=== PATIENT | male | born 1945 | race Caucasian/White ===

== ENCOUNTER 2022-10-06 09:19 | Inpatient (IN) ==
--- NOTE | 2022-10-06 09:38 | Emergency Department Note ---
ED Provider Note History of Present Illness Chief Complaint: Illness Stated Complaint: Abdominal discomfort, weakness Time Seen by Provider: 10/06/22 09:37 This is a 77-year-old male who presents to the emergency department with symptoms that have been present over the past 3 days. He reports ongoing abdominal bloating and "discomfort "in his abdomen. He states that he can feel gas in his belly extending towards his rectum. He has been trying to stay hydrated. Today, after standing for several minutes, he felt very weak and his arms and legs feel heavy. This seems to come and go in waves. 2 nights ago he woke up in a cold sweat, and has had intermittent chills. Has not had any fevers that he is aware of. When he has the weakness sensation while standing, he states that he starts breathing faster, but he denies any shortness of breath that is constant, and does not have any chest pain. Has not wanted to eat very much today. Has not passed out. Denies any nausea, vomiting, or diarrhea. Is having normal stools. No significant cardiac or pulmonary history. Denies any leg pain or leg swelling. No dysuria or hematuria. Does have a history of prostate cancer and had a prostatectomy in the past. Lives in [place], is visiting for the holiday weekend. Appendectomy and hernia repair in the past Allergies Allergy/AdvReac Type Severity Reaction Status Date / Time Sulfa (Sulfonamide Allergy Rash Verified 10/06/22 13:35 Antibiotics) Past Med/Surg History Social History Smoking Status: Never smoker Feels Safe at Home: Yes Physical Exam Vital Signs Vital Signs - 24 hr 10/06/22 09:29 10/06/22 10:16 10/06/22 10:37 Temperature 97.3 F L Temperature Source Temporal Artery Scan Pulse Rate 104 H 146 H Pulse Rate [Right Finger] 172 H Respiratory Rate 16 12 Respiratory Effort / Characteristics Non-Labored Respiratory Depth Normal Blood Pressure 127/88 Blood Pressure [Right Arm] 129/85 Blood Pressure Mean 101 Blood Pressure Mean [Right Arm] 99 Pulse Oximetry 93 99 Oxygen Delivery Method Room Air Room Air Sepsis Recent Fever Within 48 Hours No Sepsis New/Unexplained Change in Mental Status No Sepsis Action Taken by Nursing No Action Required 10/06/22 10:37 10/06/22 11:00 10/06/22 11:32 Temperature Temperature Source Pulse Rate 170 H Pulse Rate [Right Finger] 88 102 H Respiratory Rate 18 16 Respiratory Effort / Characteristics Non-Labored Respiratory Depth Normal Blood Pressure Blood Pressure [Right Arm] 111/87 118/78 Blood Pressure Mean Blood Pressure Mean [Right Arm] 95 91 Pulse Oximetry 100 98 Oxygen Delivery Method Room Air Room Air Sepsis Recent Fever Within 48 Hours Sepsis New/Unexplained Change in Mental Status Sepsis Action Taken by Nursing 10/06/22 13:15 Temperature Temperature Source Pulse Rate Pulse Rate [Right Finger] 120 H Respiratory Rate 16 Respiratory Effort / Characteristics Respiratory Depth Blood Pressure Blood Pressure [Right Arm] Blood Pressure Mean Blood Pressure Mean [Right Arm] Pulse Oximetry 97 Oxygen Delivery Method Room Air Sepsis Recent Fever Within 48 Hours Sepsis New/Unexplained Change in Mental Status Sepsis Action Taken by Nursing CONSTITUTIONAL: Well developed, well nourished, in no acute distress resting comfortably on stretcher HEAD: Normocephalic, atraumatic. EYES: Conjunctivae normal, extraocular muscles intact. No scleral icterus ENMT: External ears normal. Nose with normal external appearance, no congestion. Oral mucous membranes moist. Oropharynx normal. NECK: Full active range of motion. LYMPHATIC: No cervical adenopathy RESPIRATORY: Breathing unlabored and symmetric. Lungs clear to auscultation bilaterally. No wheeze, rales, or rhonchi. CARDIOVASCULAR: Tachycardic rate and regular rhythm. No murmurs, rubs, or gallops. ABDOMEN: Normal bowel sounds. Abdomen is soft, diffusely tender. No masses. No pulsations. MUSCULOSKELETAL: Moves all extremities at all joints without pain or difficulty. No edema in bilateral lower extremities. SKIN: [place], warm, dry. No rash. No jaundice NEUROLOGIC: Awake, alert, oriented. Gaze is conjugate. Face symmetric, speech normal. Moves head and all four extremities spontaneously. Sensation and strength grossly intact. PSYCHIATRIC: Appropriate. Normal affect Course Administered Medications Discontinued Medications Diltiazem HCl (Diltiazem Hcl 5 Mg/Ml 5 Ml Vial) 15 mg IV NOW STA Stop: 10/06/22 10:35 Last Admin: 10/06/22 10:40 Dose: 15 mg Documented By: PARVIN Co-signed By: MES Sodium Chloride (Nss) 500 mls @ 999 mls/hr IV .Q31M ONE Stop: 10/06/22 10:23 Last Infusion: 10/06/22 11:11 Dose: 0 mls/hr Documented By: Admin: 10/06/22 10:10 Dose: 999 mls/hr Documented By: GISSELLE Ioversol (Optiray 320 500ml) 112 ml IV ONCE ONE Stop: 10/06/22 11:56 Last Admin: 10/06/22 11:58 Dose: 112 ml Documented By: NITO Medical Decision Making Differential Diagnosis Gastroenteritis, ileus, obstruction, ACS, arrhythmia, pulmonary embolism, vascular, viral infection, UTI, cholecystitis, cholelithiasis, diverticulitis, among other pathology. Laboratory Data 10/06/22 10:31 10/06/22 10:31 Lab Results 10/06/22 10/06/22 10/06/22 Range/Units 10:10 10:31 10:31 WBC 4.34 L (4.8-10.8) K/ul RBC 5.07 (4.70-6.10) M/uL Hgb 15.5 (14.0-18.0) g/dl Hct 43.9 (42.0-52.0) % MCV 86.6 (80.0-100.0) fL MCH 30.6 (25.0-34.0) pg MCHC 35.3 (32.0-36.0) g/dL RDW Std Deviation 39.9 (36.4-46.3) fL RDW Coeff of Kishore 12.9 (11.5-14.5) % Plt Count 241 (130-400) K/uL MPV 9.4 (9.4-12.4) fL Immature Gran % (Auto) 0.2 % Neut % (Auto) 51.0 % Lymph % (Auto) 35.7 % Dickinson % (Auto) 9.9 % Eos % (Auto) 2.5 % Baso % (Auto) 0.7 % Neut # (Auto) 2.21 (1.40-6.50) K/uL Lymph # (Auto) 1.55 (1.2-3.4) K/uL Dickinson # (Auto) 0.43 (0.11-0.59) K/uL Eos # (Auto) 0.11 (0-0.50) K/uL Baso # (Auto) 0.03 (0-0.2) K/uL Immature Gran # (Auto) 0.01 (0.01-0.20) K/uL PT (9.0-12.0) Seconds INR (0.9-1.1) APTT (21.0-31.0) Seconds PTT Ratio D-Dimer (0-500) ug/L FEU Sodium 142 (136-145) mmol/L Potassium 4.3 (3.5-5.1) mmol/L Chloride 106 (98-107) mmol/L Carbon Dioxide 28 (21-32) mmol/L Anion Gap 8 (3-11) BUN 20 (6-23) mg/dl Creatinine 1.27 (0.6-1.4) mg/dl Est Cr Clr Drug Dosing 54.3 ml/min Est GFR ( Amer) 63.2 ml/min Est GFR (Non-Af Amer) 54.5 ml/min BUN/Creatinine Ratio 15.7 (10-20) Glucose 110 H (70-99(Fasting)) mg/dl Calcium 9.8 (8.6-10.3) mg/dl Magnesium 2.1 (1.7-2.4) mg/dl Total Bilirubin 0.7 (0.2-1.0) mg/dl AST 27 (13-39) U/L ALT 22 (7-52) U/L Alkaline Phosphatase 74 (34-104) U/L Troponin I High Sens 15.3 (0-20) pg/ml Total Protein 6.6 (6.0-8.3) gm/dl Albumin 4.0 (3.4-5.0) gm/dl Globulin 2.6 (2.5-4.0) gm/dl Albumin/Globulin Ratio 1.5 (0.9-2) Lipase 22 (11-82) U/L TSH (0.300-4.500) uIu/ml Urine Color Urine Appearance (Clear) Urine pH (4.5-7.5) Ur Specific Lincoln (1.000-1.030) Urine Protein (Negative) Urine Glucose (UA) (Negative) Urine Ketones (Negative) Urine Blood (Negative) Urine Nitrite (Negative) Urine Bilirubin (Negative) Urine Urobilinogen (Negative) Ur Leukocyte Esterase (Negative) Urine RBC (0-4) /hpf Urine WBC (0-5) /hpf Ur Epithelial Cells (0-5) /lpf Urine Bacteria (Negative) Hyaline Casts (0-5) /lpf SARS-CoV-2 (PCR) NEGATIVE (Negative) Influenza Type A (PCR) Negative (Neg) Influenza Type B (PCR) Negative (Neg) RSV (RT-PCR) Negative (Neg) 10/06/22 10/06/22 10/06/22 Range/Units 10:31 10:31 11:48 WBC (4.8-10.8) K/ul RBC (4.70-6.10) M/uL Hgb (14.0-18.0) g/dl Hct (42.0-52.0) % MCV (80.0-100.0) fL MCH (25.0-34.0) pg MCHC (32.0-36.0) g/dL RDW Std Deviation (36.4-46.3) fL RDW Coeff of Kishore (11.5-14.5) % Plt Count (130-400) K/uL MPV (9.4-12.4) fL Immature Gran % (Auto) % Neut % (Auto) % Lymph % (Auto) % Dickinson % (Auto) % Eos % (Auto) % Baso % (Auto) % Neut # (Auto) (1.40-6.50) K/uL Lymph # (Auto) (1.2-3.4) K/uL Dickinson # (Auto) (0.11-0.59) K/uL Eos # (Auto) (0-0.50) K/uL Baso # (Auto) (0-0.2) K/uL Immature Gran # (Auto) (0.01-0.20) K/uL PT 10.4 (9.0-12.0) Seconds INR 1.0 (0.9-1.1) APTT 28.8 (21.0-31.0) Seconds PTT Ratio 1.0 D-Dimer 1030 H* (0-500) ug/L FEU Sodium (136-145) mmol/L Potassium (3.5-5.1) mmol/L Chloride (98-107) mmol/L Carbon Dioxide (21-32) mmol/L Anion Gap (3-11) BUN (6-23) mg/dl Creatinine (0.6-1.4) mg/dl Est Cr Clr Drug Dosing ml/min Est GFR ( Amer) ml/min Est GFR (Non-Af Amer) ml/min BUN/Creatinine Ratio (10-20) Glucose (70-99(Fasting)) mg/dl Calcium (8.6-10.3) mg/dl Magnesium (1.7-2.4) mg/dl Total Bilirubin (0.2-1.0) mg/dl AST (13-39) U/L ALT (7-52) U/L Alkaline Phosphatase (34-104) U/L Troponin I High Sens (0-20) pg/ml Total Protein (6.0-8.3) gm/dl Albumin (3.4-5.0) gm/dl Globulin (2.5-4.0) gm/dl Albumin/Globulin Ratio (0.9-2) Lipase (11-82) U/L TSH 1.146 (0.300-4.500) uIu/ml Urine Color Yellow Urine Appearance Clear (Clear) Urine pH 5.0 (4.5-7.5) Ur Specific [place] 1.020 (1.000-1.030) Urine Protein Trace H (Negative) Urine Glucose (UA) Negative (Negative) Urine Ketones 1+ H (Negative) Urine Blood Negative (Negative) Urine Nitrite Negative (Negative) Urine Bilirubin 1+ H (Negative) Urine Urobilinogen Negative (Negative) Ur Leukocyte Esterase Negative (Negative) Urine RBC 0-4 (0-4) /hpf Urine WBC 0-5 (0-5) /hpf Ur Epithelial Cells 0-5 (0-5) /lpf Urine Bacteria Negative (Negative) Hyaline Casts >30 H (0-5) /lpf SARS-CoV-2 (PCR) (Negative) Influenza Type A (PCR) (Neg) Influenza Type B (PCR) (Neg) RSV (RT-PCR) (Neg) Imaging Data Radiologist's Impression: Chest X-Ray 10/06/22 10:34 XR chest 1V portable CLINICAL HISTORY: Weakness COMPARISON STUDY: No previous studies for comparison. FINDINGS: Lung volumes are within normal limits. There is no pneumothorax or pleural effusion. Mild cardiomegaly is noted. Lower lung interstitial thickening and mild opacities are present. IMPRESSION: 1. Lower lung interstitial thickening and mild airspace opacities. The findings could reflect atelectasis or an infectious process. Radiographic follow-up is recommended. 2. Cardiomegaly without radiographic evidence for pulmonary edema. ACT 112: Negative or not required by law. Electronically signed by: Sanchez Raymundo M.D. 10/06/2022 11:23 AM Abdomen/Pelvis CT 10/06/22 11:31 CT OF THE ABDOMEN AND PELVIS WITH CONTRAST CLINICAL HISTORY: new onset afib, GI bloating and diffuse pain COMPARISON STUDY: None. TECHNIQUE: Following IV administration of 112 mL of Optiray, axial images of the abdomen and pelvis were obtained from the lung bases to the proximal femurs. Images were reviewed in the axial, sagittal, and coronal planes. IV contrast was administered without complication. Automated exposure control was utilized for the study. A dose lowering technique was utilized adhering to the principles of ALARA. CT DOSE: 1030.45 mGy.cm FINDINGS: A few small subpleural left lower lobe nodules measure up to 6 mm. These were not well visualized on the chest CT due to respiratory motion on that exam. No pneumatosis, free air or portal venous gas is present. The liver, spleen, adrenal glands, kidneys and pancreas are unremarkable with the exception of a suspected subcentimeter left renal cyst. There is no biliary or pancreatic ductal dilatation. Gallstones within the gallbladder are present. No evidence for acute cholecystitis. There is no lymphadenopathy. Sigmoid diverticulosis is noted. There is an inflamed diverticulum of the proximal sigmoid colon. There is mild inflammation. No free air or abscess is present. There is mild associated colonic wall thickening. Small fat-containing umbilical hernia is present. Major vasculature is patent. There are no suspicious osseous lesions. IMPRESSION: 1. Acute sigmoid diverticulitis. Mild inflammation. No free air or abscess. 2. A few small subpleural left lower lobe pulmonary nodules. These are probably benign. A follow-up chest CT in 6 months to ensure stability is recommended. 3. Cholelithiasis. No evidence for acute cholecystitis. ACT 112: Negative or not required by law. Electronically signed by: Sanchez Raymundo M.D. 10/06/2022 12:31 PM Chest CTA 10/06/22 11:31 CT ANGIOGRAPHY OF THE CHEST, PULMONARY EMBOLUS PROTOCOL CLINICAL HISTORY: new onset afib, + dimer COMPARISON STUDY: Chest radiograph performed earlier today. TECHNIQUE: Following IV administration of 112 mL of Optiray, helical axial images of the chest were obtained utilizing the pulmonary embolus protocol. Maximal intensity projections and sagittal and coronal reformats were viewed on an independent 3D workstation. IV contrast was administered without complication. Automated exposure control was utilized for the study. A dose lowering technique was utilized adhering to the principles of ALARA. FINDINGS: No pulmonary emboli are identified although the lower lobe segmental and subsegmental pulmonary arteries are suboptimally assessed due to respiratory motion. There is mild cardiomegaly. No pericardial effusion. No thoracic lymphadenopathy. There is no pneumothorax or pleural effusion. Lungs are suboptimally assessed due to respiratory motion. No consolidation is identified. The central airways are grossly patent. There is no pneumothorax or pleural eff usion. There are gallstones within the gallbladder. The abdomen and pelvis CT will be reported separately. IMPRESSION: 1. No pulmonary emboli identified although segmental and subsegmental lower lobe pulmonary arteries suboptimally assessed due to respiratory motion. 2. Mild cardiomegaly. 3. No consolidation. ACT 112: Negative or not required by law. Electronically signed by: Sanchez Raymundo M.D. 10/06/2022 12:16 PM ECG Data Attestation: I personally reviewed and interpreted this ECG as follows: (Rapid atrial fibrillation with RVR. Rate of 154. PVCs are present no prior to compare.) MDM Narrative 77-year-old male presents with generalized weakness that comes in waves when standing. This is in context of having some chills over the past few days, one episode of night sweats, and some generalized abdominal discomfort and bloating over the past 3 days. Overall he is well-appearing in no acute distress. He is tachycardic with a heart rate of 104 at triage. He is tachycardic during my examination as well. His abdomen is diffusely minimally tender, normoactive bowel sounds. Differential diagnosis considered as above. An EKG was obtained demonstrating rapid atrial fibrillation with RVR, ventricular rate of 154. Patient was also seen by ED attending Dr. Carty. Consulting with Dr. Carty and ED clinical pharmacist, we decided to administer 15 mg Cardizem which improved his heart rate into the 110s/120s, remained in atrial fibrillation. He is normotensive. Denies any history of atrial fibri llation. Labs show a minimal leukopenia at 4.34, no anemia. Coags are normal. D-dimer is elevated at 1030. No electrolyte disturbance. Renal function is normal. Troponin is negative. He was given IV fluids. Urine demonstrates hyaline casts, 1+ bilirubin, 1+ ketones, no evidence of infection. COVID is negative. CTA of the chest for PE and CT abdomen pelvis with contrast were obtained. There is no PE. There is mild cardiomegaly, no evidence of pneumonia. He does appear to have acute diverticulitis. This could explain his GI symptoms over the past few days, and may be contributing to his tachycardia. I suspect the atrial fibrillation may be contributing to his waves of generalized weakness when ambulating. He is otherwise asymptomatic from an A- fib standpoint. Zosyn administered. Patient remained hemodynamically stable. He was comfortable with admission. Case was discussed with the hospitalist Dr. Villarreal who will admit the patient for further management. Impression Atrial fibrillation with RVR, Acute diverticulitis Discharge Plan Visit Data Chief Complaint: Illness Stated Complaint: Abdominal discomfort, weakness ED Provider: Oc Carty ED Midlevel Provider: John Talbot Discharge Problem: Atrial fibrillation with RVR, Acute diverticulitis Patient Disposition: Admitted As Inpatient Condition: Good Forms Stand Alone Forms: My [facility] Referrals Referrals: PCP,NO [Physician] -
[2022-10-06] MEDS ORDERED: SODIUM CHLORIDE 0.9% 500 ML IV ONE (09:53)
[2022-10-06] MEDS ORDERED: dilTIAZem HCl 5 MG/ML 5 ML VIAL IV STA (10:34)
[2022-10-06 10:54] LABS: Basophils # (auto) 0.03 K/uL (0-0.2); Basophils % (auto) 0.7 %; Eosinophils # (auto) 0.11 K/uL (0-0.50); Eosinophils % (auto) 2.5 %; Hematocrit (blood only) 43.9 % (42.0-52.0); Hemoglobin 15.5 g/dl (14.0-18.0); Immature Granulocytes # (auto) 0.01 K/uL (0.01-0.20); Immature Granulocytes % (auto) 0.2 %; Lymphocytes # (auto) 1.55 K/uL (1.2-3.4); Lymphocytes % (auto) 35.7 %; Mean Corpuscular Hemoglobin 30.6 pg (25.0-34.0); Mean Corpuscular Hgb Conc 35.3 g/dL (32.0-36.0); Mean Corpuscular Volume 86.6 fL (80.0-100.0); Mean Platelet Volume 9.4 fL (9.4-12.4); Monocytes # (auto) 0.43 K/uL (0.11-0.59); Monocytes % (auto) 9.9 %; Neutrophils # (auto) 2.21 K/uL (1.40-6.50); Platelet Count 241 K/uL (130-400); RDW Coefficient of Variation 12.9 % (11.5-14.5); RDW Standard Deviation 39.9 fL (36.4-46.3); Red Blood Count 5.07 M/uL (4.70-6.10); White Blood Count 4.34 K/ul (4.8-10.8)
[2022-10-06 11:06] LABS: Albumin Globulin Ratio 1.5 (0.9-2); BUN Creatinine Ratio 15.7 (10-20); Bilirubin,Total 0.7 mg/dl (0.2-1.0); Calcium 9.8 mg/dl (8.6-10.3); Creatinine Clr Calc Pharmacy 54.3 ml/min; Est GFR (African American) 63.2 ml/min; Est GFR (Non-African American) 54.5 ml/min; Globulin 2.6 gm/dl (2.5-4.0); Magnesium 2.1 mg/dl (1.7-2.4); Potassium 4.3 mmol/L (3.5-5.1); Total Protein 6.6 gm/dl (6.0-8.3)
[2022-10-06 11:11] LABS: Troponin I High Sensitivity 15.3 pg/ml (0-20)
[2022-10-06 11:14] LABS: Partial Thromboplastin Time 28.8 Seconds (21.0-31.0); Prothrombin Time 10.4 Seconds (9.0-12.0)
--- NOTE | 2022-10-06 11:24 | XRay Report ---
XR chest 1V portable CLINICAL HISTORY: Weakness COMPARISON STUDY: No previous studies for comparison. FINDINGS: Lung volumes are within normal limits. There is no pneumothorax or pleural effusion. Mild c ardiomegaly is noted. Lower lung interstitial thickening and mild opacities are present. IMPRESSION: 1. Lower lung interstitial thickening and mild airspace opacities. The findings could reflect atelect asis or an infectious process. Radiographic follow-up is recommended. 2. Cardiomegaly without radiographic evidence for pulmonary edema. ACT 112: Negative or not required by law. Electronically signed by: Sanchez Raymundo M.D. 10/06/2022 11:23 AM
[2022-10-06 11:26] LABS: D Dimer 1030 ug/L FEU (0-500)
[2022-10-06] MEDS ORDERED: OPTIRAY 320 500ml IV ONE (11:55)
--- NOTE | 2022-10-06 12:19 | CT Scan Report ---
CT ANGIOGRAPHY OF THE CHEST, PULMONARY EMBOLUS PROTOCOL CLINICAL HISTORY: new onset afib, + dimer COMPARISON STUDY: Chest radiograph performed earlier today. TECHNIQUE: Following IV administration of 112 mL of Optiray, helical axial images of the chest were o btained utilizing the pulmonary embolus protocol. Maximal intensity projections and sagittal and cor onal reformats were viewed on an independent 3D workstation. IV contrast was administered without co mplication. Automated exposure control was utilized for the study. A dose lowering technique was ut ilized adhering to the principles of ALARA. FINDINGS: No pulmonary emboli are identified although the lower lobe segmental and subsegmental pulm onary arteries are suboptimally assessed due to respiratory motion. There is mild cardiomegaly. No pe ricardial effusion. No thoracic lymphadenopathy. There is no pneumothorax or pleural effusion. Lungs are suboptimally assessed due to respiratory motion. No consolidation is identified. The central airw ays are grossly patent. There is no pneumothorax or pleural effusion. There are gallstones within the gallbladder. The abdomen and pelvis CT will be reported separately. IMPRESSION: 1. No pulmonary emboli identified although segmental and subsegmental lower lobe pulmonary arteries s uboptimally assessed due to respiratory motion. 2. Mild cardiomegaly. 3. No consolidation. ACT 112: Negative or not required by law. Electronically signed by: Sanchez Raymundo M.D. 10/06/2022 12:16 PM
--- NOTE | 2022-10-06 12:33 | CT Scan Report ---
CT OF THE ABDOMEN AND PELVIS WITH CONTRAST CLINICAL HISTORY: new onset afib, GI bloating and diffuse pain COMPARISON STUDY: None. TECHNIQUE: Following IV administration of 112 mL of Optiray, axial images of the abdomen and pelvis w ere obtained from the lung bases to the proximal femurs. Images were reviewed in the axial, sagittal, and coronal planes. IV contrast was administered without complication. Automated exposure control w as utilized for the study. A dose lowering technique was utilized adhering to the principles of SONDRA Bird. CT DOSE: 1030.45 mGy.cm FINDINGS: A few small subpleural left lower lobe nodules measure up to 6 mm. These were not well visu alized on the chest CT due to respiratory motion on that exam. No pneumatosis, free air or portal sid ous gas is present. The liver, spleen, adrenal glands, kidneys and pancreas are unremarkable with the exception of a suspected subcentimeter left renal cyst. There is no biliary or pancreatic ductal dil atation. Gallstones within the gallbladder are present. No evidence for acute cholecystitis. There is no lymphadenopathy. Sigmoid diverticulosis is noted. There is an inflamed diverticulum of the proxim al sigmoid colon. There is mild inflammation. No free air or abscess is present. There is mild associ ated colonic wall thickening. Small fat-containing umbilical hernia is present. Major vasculature is patent. There are no suspicious osseous lesions. IMPRESSION: 1. Acute sigmoid diverticulitis. Mild inflammation. No free air or abscess. 2. A few small subpleural left lower lobe pulmonary nodules. These are probably benign. A follow-up c hest CT in 6 months to ensure stability is recommended. 3. Cholelithiasis. No evidence for acute cholecystitis. ACT 112: Negative or not required by law. Electronically signed by: Sanchez Raymundo M.D. 10/06/2022 12:31 PM
[2022-10-06] MEDS ORDERED: PIPERACILLIN/TAZOBACTAM 4.5 GM/120 ML BAG IV ONE (12:41)
[2022-10-06] MEDS ORDERED: LACTATED RINGER'S 1,000 ML IV ONE (12:51)
--- NOTE | 2022-10-06 12:56 | Emergency Department Note ---
ED Visit Note I have personally evaluated this patient examined him and reviewed the pertinent labs and data. I have discussed the case with John Bess,the physician web assistant and agree with the plan. Please refer to the PA note. This patient was seen by John rojas PA. The nurse called and informed me that he was in rapid A-fib so I went and saw him. The patient denies chest pain or shortness of breath. he does not feel that his heart is beating fast either so is uncertain how long he has been this way he has had abdominal bloating. No history of A-fib. Is otherwise very healthy with exception of having hypothyroidism and he has had no recent change in his medication. On my exam he is resting comfortably his heart was irregularly irregular and tachycardic at about 160. His lungs are clear. IV X established was hydrated with normal saline bolus we did give him a Cardizem bolus and this brought his rate down significantly to the 100-110 range. He remained stable with this. His D-dimer was mildly elevated in light of this we did do a CT angio and also CT scaned his abdomen. CT angio does not show any PE he does have diverticulitis on the CT of the abdomen and we have treated him with IV antibiotics as well. .
[2022-10-06 12:57] LABS: Influenza A virus by PCR Negative (Neg); Influenza B virus by PCR Negative (Neg); RSV by PCR Negative (Neg); SARS CoV2 RNA(COVID-19) Ceph NEGATIVE (Negative)
[2022-10-06 13:07] LABS: Appearance Urine Clear (Clear); Bilirubin Urine 1+ (Negative); Blood Urine Negative (Negative); Color Urine Yellow; Glucose Urine UA Negative (Negative); Ketones Urine 1+ (Negative); Leukocyte Esterase Urine Negative (Negative); Nitrite Urine Negative (Negative); Protein Urine Trace (Negative); Urobilinogen Urine Negative (Negative)
[2022-10-06] MEDS ORDERED: Heparin IV Adult Wt-Based Standard WITH Bolus Protocol IV SCH (13:09)
[2022-10-06] MEDS ORDERED: Patient's ALLERGY Info needs ENTERED SCH (13:15)
[2022-10-06 13:17] LABS: Epithelial Cell Urine 0-5 /lpf (0-5); Hyaline Casts Urine >30 /lpf (0-5)
[2022-10-06 13:18] LABS: RBC Urine 0-4 /hpf (0-4)
[2022-10-06 13:20] LABS: WBC Urine 0-5 /hpf (0-5)
[2022-10-06 13:21] LABS: Bacteria Urine Negative (Negative)
--- NOTE | 2022-10-06 13:51 | History & Physical Report ---
Date of Service October 06, 2022 Assessment & Plan (1) Atrial fibrillation with RVR: Plan: New onset - suspect related to underlying diverticulitis but probably paroxsmal for years Will rehydrate first then decide upon rate controlling medications [id number] - 2, recommend anticoagulation, will start heparin bolus and drip TSH WNL TTE (2) Acute diverticulitis: Plan: Zosyn NPO except ice chips, sips and meds LR @ 125 ml/hr (3) Hypothyroid: Plan: Continue liothyronine Plan VTE Prophylaxis - heparin IV Diet - NPO except ice chips, sips and meds Disposition - admit to PCU Admission and Anticipated Discharge Date Admission Date: October 06, 2022 History of Present Illness Chief Complaint: Abdominal pain Primary Care Provider: Karel Camp MD Juan C Narayan is a 77 year old male who presents to the ER with abdominal pain. He reports a long and tangential history from childhood of gastrointestinal histories and multiple integrative medicine approaches to regulating his bowels following doxycycline given in his youth which he suspects caused his problems. Acutely though he has had new onset abdominal pain since Friday (4 days previously). Pain comes in cramping waves. Unclear if related to food. Lower abdominal without radiation. Associated chills initially and then again last night. Normal stools. No nausea or vomiting. No improvement with Yoselyn-seltzer. Feels generally weak. Colonoscopy 2 years ago - patient recollection - couple of hemorrhoids, no biopsies that he knows of. In the ER he was noticed to have atrial fibrillation with rapid ventricular rate. He reports no known history of this. He does notice palpitations occasionally and has though his HR was irregular in the past but never pursued this as regular check ups have always been normal. He denies any alcohol use. He takes liothyronine for hypothyroidism - no recent changes. Allergies Allergy/AdvReac Type Severity Reaction Status Date / Time Sulfa (Sulfonamide Allergy Rash Verified 10/06/22 15:46 Antibiotics) lactose AdvReac gi up-set Verified 10/06/22 15:55 vinegar AdvReac Severe gi-upset Uncoded 10/06/22 15:55 Home Medications Medication Instructions Recorded Confirmed Type Liothyronine 40 Mcg Tab 40 mcg PO AMPM 10/06/22 10/06/22 History ascorbic acid (vitamin C) 500 mg 1,000 mg PO BID 10/06/22 10/06/22 History tablet (Vitamin C) calcium carbonate 500 mg calcium 500 mg PO DAILY 10/06/22 10/06/22 History (1,250 mg) tablet cholecalciferol (vitamin D3) 125 125 mcg PO 4XD 10/06/22 10/06/22 History mcg (5,000 unit) tablet (Vitamin D3) cholecalciferol (vitamin D3) 125 250 mcg PO 3XWK 10/06/22 10/06/22 History mcg (5,000 unit) tablet (Vitamin D3) digestive enzymes 1 tab PO BIDM 10/06/22 10/06/22 History magnesium glycinate 100 mg tablet 0 mg PO DAILY 10/06/22 10/06/22 History vitamin B complex 1.5 tab PO DAILY 10/06/22 10/06/22 History Past Med/Surg History Medical History Hypothyroid Surgical History History of prostatectomy Social History Smoking Status: Never smoker Hx Alcohol Use: No Hx Substance Use: No Preferred Language: Luxembourgish 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 Beliefs That Will Affect Care: None Current Living Situation: Spouse Feels Safe at Home: Yes Assistive Devices: Glasses and Hearing Aid - Bilateral Review of Systems Review of Systems: All systems reviewed & are unremarkable except as noted in HPI & below Physical Exam Constitutional: WD/WN, vitals as above Eyes: + anicteric sclerae; normal pupil size ENMT: external ear and nose normal, oropharynx normal Respiratory: normal respiratory effort, lungs clear to auscultation Cardiovascular: Rate/Rhythm: + tachycardic and + irregularly irregular Heart Sounds: no murmur Extremities: normal capillary refill; no calf tendern ess and no pedal edema Gastrointestinal (Abdomen): Inspection/Auscultation: abdomen normal to inspection; abdomen not distended Percussion/Palpation: + abdomen tender (RLQ) and abdomen soft; no guarding and abdomen not rigid Musculoskeletal: no cyanosis or clubbing, extremities motor strength 5/5 Skin: no rashes, warm and dry Neurologic: moves all extremities and awake; not confused Psychiatric: A+Ox3, euthymic affect Genitourinary: no CVA tenderness Results & Data Results & Data Vital Signs (Past 12 Hours) Vital Signs Temp Pulse Pulse Resp BP BP Pulse Ox 10/06/22 13:15 120 H 16 97 10/06/22 11:32 102 H 16 118/78 98 10/06/22 11:00 88 18 111/87 100 10/06/22 10:37 170 H 10/06/22 10:37 146 H 10/06/22 10:16 172 H 12 129/85 99 10/06/22 09:29 36.3 C L 104 H 16 127/88 93 O2 Del Method 10/06/22 13:15 Room Air 10/06/22 11:32 Room Air 10/06/22 11:00 Room Air 10/06/22 10:37 10/06/22 10:37 10/06/22 10:16 Room Air 10/06/22 09:29 Room Air Laboratory Results Abnormal lab results 10/06/22 10/06/22 10/06/22 Range/Units 10:31 10:31 10:31 WBC 4.34 L (4.8-10.8) K/ul D-Dimer 1030 H* (0-500) ug/L FEU Glucose 110 H (70-99(Fasting)) mg/dl Urine Protein (Negative) Urine Ketones (Negative) Urine Bilirubin (Negative) Hyaline Casts (0-5) /lpf 10/06/22 Range/Units 11:48 WBC (4.8-10.8) K/ul D-Dimer (0-500) ug/L FEU Glucose (70-99(Fasting)) mg/dl Urine Protein Trace H (Negative) Urine Ketones 1+ H (Negative) Urine Bilirubin 1+ H (Negative) Hyaline Casts >30 H (0-5) /lpf Diagnostic Findings XR chest 1V portable CLINICAL HISTORY: Weakness COMPARISON STUDY: No previous studies for comparison. FINDINGS: Lung volumes are within normal limits. There is no pneumothorax or pleural effusion. Mild cardiomegaly is noted. Lower lung interstitial thickening and mild opacities are present. IMPRESSION: 1. Lower lung interstitial thickening and mild airspace opacities. The findings could reflect atelectasis or an infectious process. Radiographic follow-up is recommended. 2. Cardiomegaly without radiographic evidence for pulmonary edema. CT ANGIOGRAPHY OF THE CHEST, PULMONARY EMBOLUS PROTOCOL CLINICAL HISTORY: new onset afib, + dimer COMPARISON STUDY: Chest radiograph performed earlier today. TECHNIQUE: Following IV administration of 112 mL of Optiray, helical axial images of the chest were obtained utilizing the pulmonary embolus protocol. Maximal intensity projections and sagittal and coronal reformats were viewed on an independent 3D workstation. IV contrast was administered without complication. Automated exposure control was utilized for the study. A dose lowering technique was utilized adhering to the principles of ALARA. FINDINGS: No pulmonary emboli are identified although the lower lobe segmental and subsegmental pulmonary arteries are suboptimally assessed due to respiratory motion. There is mild cardiomegaly. No pericardial effusion. No thoracic lymphadenopathy. There is no pneumothorax or pleural effusion. Lungs are suboptimally assessed due to respiratory motion. No consolidation is identified. The central airways are grossly patent. There is no pneumothorax or pleural effusion. There are gallstones within the gallbladder. The abdomen and pelvis CT will be reported separately. IMPRESSION: 1. No pulmonary emboli identified although segmental and subsegmental lower lobe pulmonary arteries suboptimally assessed due to respiratory motion. 2. Mild cardiomegaly. 3. No consolidation. CT OF THE ABDOMEN AND PELVIS WITH CONTRAST CLINICAL HISTORY: new onset afib, GI bloating and diffuse pain COMPARISON STUDY: None. TECHNIQUE: Following IV administration of 112 mL of Optiray, axial images of the abdomen and pelvis were obtained from the lung bases to the proximal femurs. Images were reviewed in the axial, sagittal, and coronal planes. IV contrast was administered without complication. Automated exposure control was utilized for the study. A dose lowering technique was utilized adhering to the principles of ALARA. CT DOSE: 1030.45 mGy.cm FINDINGS: A few small subpleural left lower lobe nodules measure up to 6 mm. These were not well visualized on the chest CT due to respiratory motion on that exam. No pneumatosis, free air or portal venous gas is present. The liver, spleen, adrenal glands, kidneys and pancreas are unremarkable with the exception of a suspected subcentimeter left renal cyst. There is no biliary or pancreatic ductal dilatation. Gallstones within the gallbladder are present. No evidence for acute cholecystitis. There is no lymphadenopathy. Sigmoid diverticulosis is noted. There is an inflamed diverticulum of the proximal sigmoid colon. There is mild inflammation. No free air or abscess is present. There is mild associated colonic wall thickening. Small fat-containing umbilical hernia is present. Major vasculature is patent. There are no suspicious osseous lesions. IMPRESSION: 1. Acute sigmoid diverticulitis. Mild inflammation. No free air or abscess. 2. A few small subpleural left lower lobe pulmonary nodules. These are probably benign. A follow-up chest CT in 6 months to ensure stability is recommended. 3. Cholelithiasis. No evidence for acute cholecystitis. Medications Administered ER Medications Given: NSS 500ml bolus Diltiazem 15mg IV Zosyn 4.5g IV ECG Rate (beats per minute): 154 Rhythm: atrial fibrillation Findings: no acute ischemic change Comparison ECG Date: no prior available Code Status & VTE Plan Code Status Full VTE Prophylaxis Plan VTE Prophylaxis will be ordered: Yes PG Care Time/CCT Total # of Minutes Spent Total Time Spent: 70 Total Time Spent with Patient: Total time spent is greater than 50% in coordination of care (as documented) at patient's floor/unit and/or counseling patient: Coding Level of Care Code 85470 INT INP/OBS CARE 3/75MIN Diagnoses Atrial fibrillation with RVR I48.91 Acute diverticulitis K57.92 Hypothyroid E03.9
[2022-10-06] MEDS ORDERED: HEPARIN SOD (PORCINE) 1000 UNIT/ML IV ONE (14:45)
[2022-10-06] MEDS ORDERED: ACETAMINOPHEN 1,000 MG/100 ML VIAL IV PRN (16:03)
[2022-10-06] MEDS: HEPARIN SODIUM/DEXTROSE 25,000 UNITS/500 ML BAG IV SCH (16:37)
[2022-10-06] MEDS: METOPROLOL TARTRATE 25 MG TAB PO SCH ×2 (16:46→21:52)
[2022-10-06] MEDS: LACTATED RINGER'S 1,000 ML IV SCH (16:49)
[2022-10-06] MEDS: PIPERACILLIN/TAZOBACTAM 3.375 GM in DEXTROSE 5% 100 ML IV SCH (19:33)
[2022-10-06] MEDS ORDERED: MoRPHine SULFATE 4 MG/ML 1 ML CARP\\VIAL IV PRN (22:34)
[2022-10-06] MEDS ORDERED: METOPROLOL TARTRATE 1 MG/ML VIAL IV PRN (22:34)
[2022-10-06] MEDS ORDERED: MoRPHine SULFATE 2 MG/ML CARP IV PRN (22:34)
[2022-10-06 23:26] LABS: Partial Thromboplastin Ratio > 5.1
[2022-10-06 23:47] LABS: Partial Thromboplastin Time > 139.0 Seconds (21.0-31.0)
[2022-10-07] MEDS: LACTATED RINGER'S 1,000 ML IV SCH ×3 (00:49→17:17)
[2022-10-07 01:20] LABS: Partial Thromboplastin Ratio 3.6
[2022-10-07] MEDS: PIPERACILLIN/TAZOBACTAM 3.375 GM in DEXTROSE 5% 100 ML IV SCH ×3 (04:06→20:10)
[2022-10-07] MEDS: METOPROLOL TARTRATE 50 MG TAB PO SCH ×2 (08:50→20:10)
[2022-10-07 09:18] LABS: Basophils # (auto) 0.02 K/uL (0-0.2); Basophils % (auto) 0.5 %; Eosinophils % (auto) 2.4 %; Hematocrit (blood only) 40.9 % (42.0-52.0); Hemoglobin 14.3 g/dl (14.0-18.0); Immature Granulocytes # (auto) 0.01 K/uL (0.01-0.20); Immature Granulocytes % (auto) 0.2 %; Lymphocytes # (auto) 2.03 K/uL (1.2-3.4); Lymphocytes % (auto) 47.9 %; Mean Corpuscular Hemoglobin 29.9 pg (25.0-34.0); Mean Corpuscular Volume 85.4 fL (80.0-100.0); Mean Platelet Volume 9.7 fL (9.4-12.4); Monocytes # (auto) 0.38 K/uL (0.11-0.59); Platelet Count 220 K/uL (130-400); RDW Coefficient of Variation 12.8 % (11.5-14.5); RDW Standard Deviation 39.7 fL (36.4-46.3); Red Blood Count 4.79 M/uL (4.70-6.10); White Blood Count 4.24 K/ul (4.8-10.8)
[2022-10-07 09:43] LABS: Albumin Globulin Ratio 1.6 (0.9-2); Albumin Level 3.6 gm/dl (3.4-5.0); Bilirubin,Total 0.9 mg/dl (0.2-1.0); Calcium 8.4 mg/dl (8.6-10.3); Creatinine Clr Calc Pharmacy 54.3 ml/min; Est GFR (African American) 63.2 ml/min; Est GFR (Non-African American) 54.5 ml/min; Globulin 2.2 gm/dl (2.5-4.0); Potassium 3.7 mmol/L (3.5-5.1); Total Protein 5.8 gm/dl (6.0-8.3)
[2022-10-07 09:52] LABS: Partial Thromboplastin Ratio 1.9
[2022-10-07 10:25] LABS: Partial Thromboplastin Time 52.7 Seconds (21.0-31.0)
[2022-10-07] MEDS: HEPARIN SODIUM/DEXTROSE 25,000 UNITS/500 ML BAG IV SCH (10:31)
--- NOTE | 2022-10-07 19:29 | Cardiology Consultation ---
Date of Consultation October 07, 2022 Assessment & Plan (1) Atrial fibrillation with RVR: (2) Acute diverticulitis: Plan ASSESSMENT/PLAN: 1. Atrial fibrillation with rapid ventricular response: We discussed the diagnosis in detail. We discussed treatment strategies such as rate control, rhythm control, cardioversion, ablation. He seems to be completely asymptomatic in regards to his heart rate and rhythm. Continue beta-susan. We will initiate diltiazem 30 mg p.o. every 6 hours. These medications can be titrated upward to improve heart rate as appropriate. Onset of atrial fibrillation is not known. If plans for cardioversion, would recommend transesophageal echo f irst. Chads Vasc score elevated based on age. Discussed anticoagulation for stroke risk reduction. Currently on heparin drip. Can convert to novel agent later this hospital stay when closer to discharge and will defer timing to primary hospitalist service given acute diverticulitis. If adequate rate control is achieved, would recommend follow-up with cardiology when he returns home to the [place] area to determine long-term care, including possible cardioversion after 4 weeks of therapeutic anticoagulation therapy versus continuation of rate control strategy. 2. Acute diverticulitis: As per primary hospitalist service. Acute illness may be contributing to his arrhythmia. 3. Disposition: Cardiology will continue to follow. Plan of care communicated with primary hospitalist, Dr. Parker. Highly complex medical issues for which cardioversion was considered and discussed. We will first attempt rate control strategy. Thank you for allowing me to participate in the care of your patient. Please call for any other questions or concerns. Sincerely, Jacky Thorne M.D. History of Present Illness Reason for Consultation: Atrial Fibrillation Requesting Physician: John Parker Attending Physician: John Parker History of Present Illness Mr. Narayan is a very pleasant 77-year-old gentleman with a history significant for hypothyroidism. He was admitted on 10/06/2022 after presenting with abdominal pain. He was noted to be in atrial fibrillation with rapid ventricular response. CT imaging reported sigmoid diverticulitis. For the past approximate 4 days, he has had left lower quadrant abdominal pain described as a cramping sensation. On the day of presentation, he had decreased energy and felt unwell. Given his abdominal discomfort, he came to the emergency department. He is visiting his daughter, as he typically resides near [place]. When noted to be in atrial fibrillation with rapid ventricular response, he denied palpitations, chest pain, shortness of breath, syncope, near syncope, edema, or bleeding. He had a flutter sensation in his chest approximately 5 years ago but otherwise has not been diagnosed with atrial fibrillation or other arrhythmia. He was placed on metoprolol by the hospitalist service, receiving 50 mg of p.o. metoprolol yesterday and another 50 mg today. His heart rate remains elevated. He typically exercises daily, reporting 1.5 miles on an elliptical daily, golfing, [employer], and other activities. He denies a history of vascular disease, diabetes, heart failure, TIA/stroke, or hypertension. He was noted to have an elevated blood pressure at 1 time in the past and became orthostatic on low-dose ARB. ARB therapy was discontinued and blood pressure has been well controlled. Review of systems: As above. Review of systems otherwise negative/unremarkable. Family history: Brother had pacemaker and Lane's. Father was an alcoholic and at 93. Mother at 52 with rheumatic heart disease. Social history: He denies tobacco, alcohol, or drug abuse. He lives at home with his . He has a son and a daughter. 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 He lives near [place]. His was present at the bedside. Allergies Allergy/AdvReac Type Severity Reaction Status Date / Time Sulfa (Sulfonamide Allergy Rash Verified 10/06/22 15:46 Antibiotics) lactose AdvReac gi up-set Verified 10/06/22 15:55 vinegar AdvReac Severe gi-upset Uncoded 10/06/22 15:55 Home Medications Medication Instructions Recorded Confirmed Type Liothyronine 40 Mcg Tab 40 mcg PO AMPM 10/06/22 10/06/22 History ascorbic acid (vitamin C) 500 mg 1,000 mg PO BID 10/06/22 10/06/22 History tablet (Vitamin C) calcium carbonate 500 mg calcium 500 mg PO DAILY 10/06/22 10/06/22 History (1,250 mg) tablet cholecalciferol (vitamin D3) 125 125 mcg PO 4XD 10/06/22 10/06/22 History mcg (5,000 unit) tablet (Vitamin D3) cholecalciferol (vitamin D3) 125 250 mcg PO 3XWK 10/06/22 10/06/22 History mcg (5,000 unit) tablet (Vitamin D3) digestive enzymes 1 tab PO BIDM 10/06/22 10/06/22 History magnesium glycinate 100 mg tablet 0 mg PO DAILY 10/06/22 10/06/22 History vitamin B complex 1.5 tab PO DAILY 10/06/22 10/06/22 History Patient History Medical History (Updated 10/07/22 @ 19:33 by Zackary Thorne MD) Hypothyroid Prostate cancer Surgical History History of prostatectomy S/P prostatectomy Social History Smoking Status: Never smoker Hx Alcohol Use: No Hx Substance Use: No Preferred Language: Trinidadian Communication Ability: Effective 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 Alert and oriented. HEENT: Anicteric sclera. Neck: No JVD. No bruits. Normal carotid upstrokes bilaterally. Cardiac: No ventricular heave. Irregularly irregular and tachycardic. Normal S1-S2. No murmurs, rubs, or gallops. Pulmonary: Clear to auscultation bilaterally without wheezes, rales, or rhonchi. Abdomen: Soft, nondistended, with normoactive bowel sounds. No bruits noted. Left lower quadrant tender to palpation without rebound tenderness. Extremities: 2+ radial pulses bilaterally. 2+ posterior tibialis pulses bilaterally. No edema or cyanosis. Psychiatric: Affect appears appropriate. Results & Data Vital Signs (Past 12 Hours) Vital Signs Temp Pulse Pulse Resp BP BP Pulse Ox 10/07/22 19:24 138 H 112/84 10/07/22 15:34 36.4 C L 110 H 18 121/67 96 10/07/22 11:03 36.5 C 97 H 17 102/64 92 10/07/22 07:55 36.5 C 100 H 18 113/70 96 O2 Del Method 10/07/22 19:24 10/07/22 15:34 Room Air 10/07/22 11:03 Room Air 10/07/22 07:55 Room Air Laboratory Results Laboratory Results - last 24 hr 10/06/22 10/07/22 10/07/22 22:26 00:13 08:42 WBC 4.24 L RBC 4.79 Hgb 14.3 Hct 40.9 L MCV 85.4 MCH 29.9 MCHC 35.0 RDW Std Deviation 39.7 RDW Coeff of Kishore 12.8 Plt Count 220 MPV 9.7 Immature Gran % (Auto) 0.2 Neut % (Auto) 40.0 Lymph % (Auto) 47.9 [place] % (Auto) 9.0 Eos % (Auto) 2.4 Baso % (Auto) 0.5 Neut # (Auto) 1.70 Lymph # (Auto) 2.03 [place] # (Auto) 0.38 Eos # (Auto) 0.10 Baso # (Auto) 0.02 Immature Gran # (Auto) 0.01 APTT > 139.0 H* 99.0 H* PTT Ratio > 5.1 3.6 Sodium Potassium Chloride Carbon Dioxide Anion Gap BUN Creatinine Est Cr Clr Drug Dosing Est GFR ( Amer) Est GFR (Non-Af Amer) BUN/Creatinine Ratio Glucose Calcium Total Bilirubin AST ALT Alkaline Phosphatase Total Protein Albumin Globulin Albumin/Globulin Ratio 10/07/22 10/07/22 08:42 08:42 WBC RBC Hgb Hct MCV MCH MCHC RDW Std Deviation RDW Coeff of Kishore Plt Count MPV Immature Gran % (Auto) Neut % (Auto) Lymph % (Auto) [place] % (Auto) Eos % (Auto) Baso % (Auto) Neut # (Auto) Lymph # (Auto) [place] # (Auto) Eos # (Auto) Baso # (Auto) Immature Gran # (Auto) APTT 52.7 H* PTT Ratio 1.9 Sodium 141 Potassium 3.7 Chloride 109 H Carbon Dioxide 23 Anion Gap 9 BUN 14 Creatinine 1.27 Est Cr Clr Drug Dosing 54.3 Est GFR ( Amer) 63.2 Est GFR (Non-Af Amer) 54.5 BUN/Creatinine Ratio 11.0 Glucose 102 H Calcium 8.4 L Total Bilirubin 0.9 AST 25 ALT 20 Alkaline Phosphatase 63 Total Protein 5.8 L Albumin 3.6 Globulin 2.2 L Albumin/Globulin Ratio 1.6 Diagnostic Findings Chart reviewed. Telemetry personally reviewed: Atrial fibrillation with rapid ventricular response. Blood cultures negative x2 from 10/06/2022. Labs reviewed from 10/07/2022 and demonstrated normal hemoglobin, stable renal function, normal potassium, normal transaminase levels. TSH normal on 10/06/2022. ECGs personally reviewed: ECG 10/06/2022 at 10:16 AM: A-fib RVR 154 bpm. PVCs versus aberrantly conducted complexes. Nonspecific ST abnormality. ECG 10/07/2022 at 1440: A-fib RVR 122 bpm. Nonspecific T wave abnormality. Echo 10/07/2022 preliminary review: Normal LV systolic function. Nonsevere mitral, aortic, and tricuspid regurgitation. History and physical report reviewed. CTA chest 10/06/2022: No PE. CT abdomen/pelvis 10/06/2022: Acute sigmoid diverticulitis. No free air or abscess. Medications Administered Current Inpatient Medications Heparin Sodium/Dextrose (Heparin Sodium/Dextrose) 25,000 units in 500 mls @ 22 mls/hr IV .[id number] [facility]; Protocol Stop: 11/05/22 14:44 Last Titration: 10/07/22 18:49 Dose: 1,100 units/hr, 22 mls/hr Acetaminophen (Ofirmev) 1,000 mg in 100 mls @ 400 mls/hr IV Q8H PRN PRN Reason: Pain or Fever Stop: 10/09/22 16:02 Lactated Ringer's (Lr) 1,000 mls @ 125 mls/hr IV .Q8H [facility] Stop: 11/05/22 16:02 Last Admin: 10/07/22 17:17 Dose: 125 mls/hr Piperacillin Sod/Tazobactam (Sod 3.375 gm/ Dextrose) 115 mls @ 28.75 mls/hr IV Q8H [facility]; Protocol Stop: 10/16/22 19:59 Last Infusion: 10/07/22 16:15 Dose: Infused Metoprolol Tartrate (Metoprolol Tartrate 1 Mg/Ml Vial) 5 mg IV Q4 PRN PRN Reason: HR persistently > 120 Stop: 11/06/22 00:00 Last Admin: 10/07/22 19:24 Dose: 5 mg Metoprolol Tartrate (Metoprolol Tartrate 50 Mg Tab) 50 mg PO BID [facility] Stop: 11/06/22 08:59 Last Admin: 10/07/22 08:50 Dose: 50 mg Morphine Sulfate (Morphine Sulfate 4 Mg/Ml 1 Ml Carp\Vial) 4 mg IV Q3H PRN PRN Reason: Pain (6,7,8,9,10) Stop: 10/20/22 22:33 Morphine Sulfate (Morphine Sulfate 2 Mg/Ml Carp) 2 mg IV Q3H PRN PRN Reason: Pain (1,2,3,4,5) & Pre PT Stop: 10/20/22 22:33 Liothyronine 40mcg: Non-Formulary Patient's Own Med 1 each PO BID BOB Stop: 11/06/22 21:59 PG Care Time/CCT Total # of Minutes Spent Total Time Spent with Patient: Total time spent is greater than 50% in coordination of care (as documented) at patient's floor/unit and/or counseling patient: Coding Level of Care Code 36919 INT INP/OBS CARE 3/75MIN Diagnoses Atrial fibrillation with RVR I48.91 Acute diverticulitis K57.92
[2022-10-07] MEDS: LIOTHYRONINE PO SCH (20:11)
--- NOTE | 2022-10-07 20:38 | XCELERA ---
[id number]
[2022-10-07] MEDS: dilTIAZem HCL 30 MG TAB PO SCH (21:56)
--- NOTE | 2022-10-07 22:07 | Hospitalist Progress Note ---
Date of Service October 07, 2022 Assessment & Plan (1) Atrial fibrillation with RVR: Plan: New onset - suspect related to underlying diverticulitis but probably paroxysmal for years Will rehydrate first then decide upon rate controlling medications [id number] - 2, recommend anticoagulation, will start heparin bolus and drip TSH WNL TTE continue anticoagulation (2) Acute diverticulitis: Plan: Zosyn NPO except ice chips, sips and meds LR @ 125 ml/hr continnue antibiotics and will place on a clear liquid diet on 10/07 (3) Hypothyroid: Plan: Continue liothyronine Plan VTE Prophylaxis - heparin IV Disposition - admit to PCU Admission and Anticipated Discharge Date Admission Date: October 06, 2022 Subjective 77 yo male reports feeling better. His pain has improved, he is asking for food. Review of Systems Review of Systems: All systems reviewed & are unremarkable except as noted in HPI & below Physical Exam Physical Exam: Constitutional: WD/WN, vitals as above Eyes: + anicteric sclerae; normal pupil size ENMT: external ear and nose normal, oropharynx normal Respiratory: normal respiratory effort, lungs clear to auscultation Cardiovascular: Rate/Rhythm: + tachycardic and + irregularly irregular Heart Sounds: no murmur Extremities: normal capillary refill; no calf tenderness and no pedal edema Gastrointestinal (Abdomen): Inspection/Auscultation: abdomen normal to inspe ction; abdomen not distended Percussion/Palpation: + abdomen tender (RLQ) and abdomen soft; no guarding and abdomen not rigid Musculoskeletal: no cyanosis or clubbing, extremities motor strength 5/5 Skin: no rashes, warm and dry Neurologic: moves all extremities and awake; not confused Psychiatric: A+Ox3, euthymic affect Genitourinary: no CVA tenderness Results & Data Results & Data Vital Signs (Past 12 Hours) Vital Signs Temp Pulse Pulse Resp BP BP Pulse Ox 10/07/22 19:35 36.9 C 115 H 16 123/84 96 10/07/22 19:24 138 H 112/84 10/07/22 15:34 36.4 C L 110 H 18 121/67 96 10/07/22 11:03 36.5 C 97 H 17 102/64 92 O2 Del Method 10/07/22 19:35 Room Air 10/07/22 19:24 10/07/22 15:34 Room Air 10/07/22 11:03 Room Air PG Care Time/CCT Total # of Minutes Spent Total Time Spent with Patient: Total time spent is greater than 50% in coordination of care (as documented) at patient's floor/unit and/or counseling patient: Coding Level of Care Code 81787 SUB INP/OBS CARE 2/35MIN Diagnoses Atrial fibrillation with RVR I48.91 Acute diverticulitis K57.92 Hypothyroid E03.9
[2022-10-08] MEDS: LACTATED RINGER'S 1,000 ML IV SCH ×2 (01:26→09:22)
[2022-10-08] MEDS: dilTIAZem HCL 30 MG TAB PO SCH ×4 (01:26→20:18)
[2022-10-08] MEDS: PIPERACILLIN/TAZOBACTAM 3.375 GM in DEXTROSE 5% 100 ML IV SCH ×3 (03:55→20:18)
[2022-10-08 06:50] LABS: Partial Thromboplastin Ratio 1.9
[2022-10-08 07:18] LABS: Partial Thromboplastin Time 51.8 Seconds (21.0-31.0)
[2022-10-08] MEDS: LIOTHYRONINE PO SCH ×2 (08:08→20:19)
[2022-10-08] MEDS: METOPROLOL TARTRATE 50 MG TAB PO SCH ×2 (08:08→20:18)
[2022-10-08] MEDS: HEPARIN SODIUM/DEXTROSE 25,000 UNITS/500 ML BAG IV SCH (09:14)
--- NOTE | 2022-10-08 16:49 | Cardiology Progress Note ---
Date of Service October 08, 2022 Assessment & Plan (1) Atrial fibrillation with RVR: (2) Acute diverticulitis: Plan ASSESSMENT/PLAN: 1. Atrial fibrillation with rapid ventricular response: Heart rate much improved with addition of diltiazem. Can replace diltiazem 30 mg p.o. every 6 hours with diltiazem 120 mg once daily. Continue beta-susan. Continue anticoagulation for stroke risk reduction. Recommend novel agent in place of heparin when sure no procedures needed for his diverticulitis. He is asymptomatic and therefore would continue with rate control strategy for now. After 4 weeks of therapeutic anticoagulation therapy, consideration can be made by his local providers to continue rate control strategy versus DC cardioversion. Recommend cardiology follow-up when he returns to the [facility]. 2. Acute diverticulitis: As per primary hospitalist service. Acute illness may be contributing to his arrhythmia. 3. Disposition: Plan of care communicated with primary hospitalist, Dr. Parker. Cardiology will sign off at this time. Please call with any other questions or concerns Admission and Anticipated Discharge Date Admission Date: October 06, 2022 Subjective Continues to have left lower quadrant pain, however improved. Denies chest pain, shortness of breath, palpitations, syncope, or bleeding. He was alone in his hospital room. Physical Exam Physical Exam: Gen.: No acute distress. Alert and oriented. HEENT: Anicteric sclera. Neck: No JVD. Cardiac: Irregularly irregular. Normal heart rate. Normal S1-S2. No murmurs, rubs, or gallops. Pulmonary: Clear to auscultation bilaterally without wheezes, rales, or rhonchi. Abdomen: Soft, nondistended, with normoactive bowel sounds. No bruits noted. Left lower quadrant tender to palpation without rebound tenderness. Extremities: 2+ radial pulses bilaterally. 2+ posterior tibialis pulses bilaterally. No edema or cyanosis. Psychiatric: Affect appears appropriate. Results & Data Vital Signs (Past 12 Hours) Vital Signs Temp Pulse Pulse Resp BP Pulse Ox O2 Del Method 10/08/22 15:39 37.0 C 76 18 104/61 97 Room Air 10/08/22 13:49 107 H 109/72 10/08/22 07:53 36.8 C 90 18 132/96 98 Room Air 10/08/22 06:45 109 H Laboratory Results Laboratory Results - last 24 hr 10/08/22 05:35 APTT 51.8 H* PTT Ratio 1.9 Diagnostic Findings Chart reviewed. Telemetry personally reviewed. Telemetry: A-fib with improved heart rate. No significant pauses. Medications Administered Current Inpatient Medications Diltiazem HCl (Diltiazem Hcl 30 Mg Tab) 30 mg PO Q6H [facility] Stop: 11/06/22 19:59 Last Admin: 10/08/22 13:47 Dose: 30 mg Heparin Sodium/Dextrose (Heparin Sodium/Dextrose) 25,000 units in 500 mls @ 22 mls/hr IV .[id number] [facility]; Protocol Stop: 11/05/22 14:44 Last Admin: 10/08/22 09:14 Dose: 1,100 units/hr, 22 mls/hr Acetaminophen (Ofirmev) 1,000 mg in 100 mls @ 400 mls/hr IV Q8H PRN PRN Reason: Pain or Fever Stop: 10/09/22 16:02 Piperacillin Sod/Tazobactam (Sod 3.375 gm/ Dextrose) 115 mls @ 28.75 mls/hr IV Q8H [facility]; Protocol Stop: 10/16/22 19:59 Last Infusion: 10/08/22 16:09 Dose: Infused Metoprolol Tartrate (Metoprolol Tartrate 1 Mg/Ml Vial) 5 mg IV Q4 PRN PRN Reason: HR persistently > 120 Stop: 11/06/22 00:00 Last Admin: 10/07/22 19:24 Dose: 5 mg Metoprolol Tartrate (Metoprolol Tartrate 50 Mg Tab) 50 mg PO BID [facility] Stop: 11/06/22 08:59 Last Admin: 10/08/22 08:08 Dose: 50 mg Morphine Sulfate (Morphine Sulfate 4 Mg/Ml 1 Ml Carp\Vial) 4 mg IV Q3H PRN PRN Reason: Pain (6,7,8,9,10) Stop: 10/20/22 22:33 Morphine Sulfate (Morphine Sulfate 2 Mg/Ml Carp) 2 mg IV Q3H PRN PRN Reason: Pain (1,2,3,4,5) & Pre PT Stop: 10/20/22 22:33 Liothyronine 40mcg: Non-Formulary Patient's Own Med 1 each PO BID [facility] Stop: 11/06/22 21:59 Last Admin: 10/08/22 08:08 Dose: 40 mcg PG Care Time/CCT Total # of Minutes Spent Total Time Spent with Patient: Total time spent is greater than 50% in coordination of care (as documented) at patient's floor/unit and/or counseling patient: Coding Level of Care Code 37442 SUB INP/OBS CARE 2/35MIN Diagnoses Atrial fibrillation with RVR I48.91 Acute diverticulitis K57.92
[2022-10-08 19:43] LABS: Hematocrit (blood only) 39.1 % (42.0-52.0); Hemoglobin 13.8 g/dl (14.0-18.0); Mean Corpuscular Hemoglobin 30.1 pg (25.0-34.0); Mean Corpuscular Hgb Conc 35.3 g/dL (32.0-36.0); Mean Corpuscular Volume 85.2 fL (80.0-100.0); Mean Platelet Volume 9.7 fL (9.4-12.4); Platelet Count 209 K/uL (130-400); RDW Coefficient of Variation 12.8 % (11.5-14.5); RDW Standard Deviation 39.6 fL (36.4-46.3); Red Blood Count 4.59 M/uL (4.70-6.10); White Blood Count 4.24 K/ul (4.8-10.8)
[2022-10-08 19:47] LABS: BUN Creatinine Ratio 6.7 (10-20); Calcium 8.1 mg/dl (8.6-10.3); Est GFR (African American) 68.4 ml/min; Potassium 3.4 mmol/L (3.5-5.1)
[2022-10-08] MEDS: APIXABAN 5 MG TABLET PO SCH (20:58)
[2022-10-08] MEDS ORDERED: HEPARIN: STOP ORDER ONE (21:00)
--- NOTE | 2022-10-09 00:03 | Hospitalist Progress Note ---
Date of Service October 08, 2022 Assessment & Plan (1) Atrial fibrillation with RVR: Plan: New onset - suspect related to underlying diverticulitis but probably paroxysmal for years Will rehydrate first then decide upon rate controlling medications [id number] - 2, recommend anticoagulation: will switch to eliquis TSH WNL TTE continue anticoagulation reviewed labs If HR is better controlled will discharge patient. (2) Acute diverticulitis: Plan: Zosyn NPO except ice chips, sips and meds LR @ 125 ml/hr continnue antibiotics and will advance his diet (3) Hypothyroid: Plan: Continue liothyronine Plan VTE Prophylaxis - heparin IV Disposition - admit to PCU Admission and Anticipated Discharge Date Admission Date: October 06, 2022 Subjective 77 yo male reports feeling well. His pain is better controlled today. Review of Systems Review of Systems: All systems reviewed & are unremarkable except as noted in HPI & below Physical Exam Physical Exam: Constitutional: WD/WN, vitals as above Eyes: + anicteric sclerae; normal pupil size ENMT: external ear and nose normal, oropharynx normal Respiratory: normal respiratory effort, lungs clear to auscultation Cardiovascular: Rate/Rhythm: normal rate, irregularly irregular Heart Sounds: no murmur Extremities: normal capillary refill; no calf tenderness and no pedal edema Gastrointestinal (Abdomen): Inspection/Auscultation: abdomen normal to inspection; abdomen not distended Percussion/Palpation: + decreased abdomen tender (RLQ) and abdomen soft; no guarding and abdomen not rigid Musculoskeletal: no cyanosis or clubbing, extremities motor strength 5/5 Skin: no rashes, warm and dry Neurologic: moves all extremities and awake; not confused Psychiatric: A+Ox3, euthymic affect Genitourinary: no CVA tenderness Results & Data Results & Data Vital Signs (Past 12 Hours) Vital Signs Temp Pulse Resp BP Pulse Ox O2 Del Method 10/08/22 22:40 37.0 C 95 H 18 100/69 94 Room Air 10/08/22 19:22 36.9 C 82 16 117/77 96 Room Air 10/08/22 15:39 37.0 C 76 18 104/61 97 Room Air 10/08/22 13:49 107 H 109/72 PG Care Time/CCT Total # of Minutes Spent Total Time Spent with Patient: Total time spent is greater than 50% in coordination of care (as documented) at patient's floor/unit and/or counseling patient: Coding Level of Care Code 07487 SUB INP/OBS CARE MIN Diagnoses Atrial fibrillation with RVR I48.91 Acute diverticulitis K57.92 Hypothyroid E03.9
[2022-10-09] MEDS: dilTIAZem HCL 30 MG TAB PO SCH ×3 (02:36→20:17)
[2022-10-09] MEDS: PIPERACILLIN/TAZOBACTAM 3.375 GM in DEXTROSE 5% 100 ML IV SCH ×3 (03:47→20:18)
--- NOTE | 2022-10-09 05:40 | Electrocardiogram Report ---
Test Reason : Blood Pressure : / mmHG Vent. Rate : 154 BPM Atrial Rate : 078 BPM P-R Int : 000 ms QRS Dur : 086 ms QT Int : 294 ms P-R-T Axes : 000 019 039 degrees QTc Int : 470 ms Atrial fibrillation with rapid ventricular response with premature ventricular or aberrantly conducte d complexes Septal infarct , age undetermined Abnormal ECG No previous ECGs available Confirmed by Zackary Thorne ([id number]) on 10/09/2022 5:39:47 AM Referred By: REFERRED SELF Confirmed By:Zackary Thorne
--- NOTE | 2022-10-09 06:02 | Electrocardiogram Report ---
Test Reason : Blood Pressure : / mmHG Vent. Rate : 122 BPM Atrial Rate : 163 BPM P-R Int : 000 ms QRS Dur : 088 ms QT Int : 344 ms P-R-T Axes : 000 003 038 degrees QTc Int : 490 ms Atrial fibrillation with rapid ventricular response Nonspecific T wave abnormality Abnormal ECG When compared with ECG of 06-OCT-2022 10:16, Premature ventricular complexes are no longer Present Confirmed by Zackary Thorne ([id number]) on 10/09/2022 6:01:52 AM Referred By: REFERRED SELF Confirmed By:Zackary Thorne
[2022-10-09] MEDS: LIOTHYRONINE PO SCH ×2 (08:01→20:19)
[2022-10-09] MEDS ORDERED: dilTIAZem HCL 120 MG CAPCR PO SCH (09:00)
--- NOTE | 2022-10-09 09:03 | Cardiology Progress Note ---
Date of Service October 09, 2022 Assessment & Plan (1) Atrial fibrillation with RVR: (2) Acute diverticulitis: Plan ASSESSMENT/PLAN: 1. Atrial fibrillation with rapid ventricular response: Heart rate much improved with addition of diltiazem. Has had episodes of tachycardia. Rec eiving first dose of diltiazem CD1 120 mg this morning. After he received his morning meds, nursing staff was asked to have him walk around the unit. Anticipate diltiazem will need to be further titrated upward. Continue beta- susan. Continue Eliquis for stroke risk reduction. He is asymptomatic and therefore would continue with rate control strategy for now. After 4 weeks of therapeutic anticoagulation therapy, consideration can be made by his local providers to continue rate control strategy versus DC cardioversion. Recommend cardiology follow-up when he returns to the [facility]. 2. Acute diverticulitis: As per primary hospitalist service. Acute illness may be contributing to his arrhythmia. 3. Hypokalemia: Dose of potassium chloride ordered to be given now. Will defer further electrolyte management to primary hospitalist. 4. Disposition: Plan of care communicated with primary hospitalist, Dr. Parker. Please call with any other questions or concerns. Addendum: Nursing staff notified of heart rates. Heart rate at rest was 115 bpm and with exertion, 140s. Will increase diltiazem. Admission and Anticipated Discharge Date Admission Date: October 06, 2022 Subjective When reviewing telemetry, it was noted that he is having episodes of tachycardia and therefore was formally seen again today. Abdominal pain has resolved. Has nausea. Eating more regular food. Has watery brown bowel movements. He denies chest pain, dynpnea, palpitations, or bleeding. He hasn't yet walked in the hallway. He was alone in his hospital room. Physical Exam Physical Exam: Gen.: No acute distress. Alert and oriented. HEENT: Anicteric sclera. Neck: No JVD. Cardiac: Irregularly irregular. Tachycardic. Normal S1-S2. No murmurs, rubs, or gallops. Pulmonary: Clear to auscultation bilaterally without wheezes, rales, or rhonchi. Abdomen: Soft, nondistended, with normoactive bowel sounds. No bruits noted. Left lower quadrant is now nontender. Extremities: 2+ radial pulses bilaterally. 2+ posterior tibialis pulses bilaterally. No edema or cyanosis. Psychiatric: Affect appears appropriate. Results & Data Vital Signs (Past 12 Hours) Vital Signs Temp Pulse Pulse Resp BP Pulse Ox O2 Del Method 10/09/22 08:26 36.8 C 85 18 104/72 98 Room Air 10/09/22 02:33 36.4 C L 97 H 16 106/78 97 Room Air 10/08/22 22:00 90 10/08/22 22:40 37.0 C 95 H 18 100/69 94 Room Air Laboratory Results Laboratory Results - last 24 hr 10/08/22 10/08/22 18:49 18:49 WBC 4.24 L RBC 4.59 L Hgb 13.8 L Hct 39.1 L MCV 85.2 MCH 30.1 MCHC 35.3 RDW Std Deviation 39.6 RDW Coeff of Kishore 12.8 Plt Count 209 MPV 9.7 Sodium 139 Potassium 3.4 L Chloride 110 H Carbon Dioxide 22 Anion Gap 7 BUN 8 Creatinine 1.19 Est Cr Clr Drug Dosing 58.0 Est GFR ( Amer) 68.4 Est GFR (Non-Af Amer) 59.0 BUN/Creatinine Ratio 6.7 L Glucose 142 H Calcium 8.1 L Diagnostic Findings Telemetry personally reviewed: Atrial fibrillation. At times overnight, heart rate is reasonably controlled. He has had episodes of rapid ventricular response, including after our discussion today. Labs reviewed from 10/08/2022 at 1849, demonstrating mild hypokalemia. Stable renal function. Medications Administered Current Inpatient Medications Apixaban (Apixaban 5 Mg Tablet) 5 mg PO BID [facility] Stop: 11/07/22 20:59 Last Admin: 10/09/22 09:05 Dose: 5 mg Diltiazem HCl (Diltiazem Hcl 120 Mg Capcr) 120 mg PO QAM [facility] Stop: 11/08/22 08:59 Last Admin: 10/09/22 09:04 Dose: 120 mg Acetaminophen (Ofirmev) 1,000 mg in 100 mls @ 400 mls/hr IV Q8H PRN PRN Reason: Pain or Fever Stop: 10/09/22 16:02 Piperacillin Sod/Tazobactam (Sod 3.375 gm/ Dextrose) 115 mls @ 28.75 mls/hr IV Q8H [facility]; Protocol Stop: 10/16/22 19:59 Last Infusion: 10/09/22 07:55 Dose: Infused Metoprolol Tartrate (Metoprolol Tartrate 1 Mg/Ml Vial) 5 mg IV Q4 PRN PRN Reason: HR persistently > 120 Stop: 11/06/22 00:00 Last Admin: 10/07/22 19:24 Dose: 5 mg Metoprolol Tartrate (Metoprolol Tartrate 50 Mg Tab) 50 mg PO BID [facility] Stop: 11/06/22 08:59 Last Admin: 10/09/22 09:04 Dose: 50 mg Morphine Sulfate (Morphine Sulfate 4 Mg/Ml 1 Ml Carp\Vial) 4 mg IV Q3H PRN PRN Reason: Pain (6,7,8,9,10) Stop: 10/20/22 22:33 Morphine Sulfate (Morphine Sulfate 2 Mg/Ml Carp) 2 mg IV Q3H PRN PRN Reason: Pain (1,2,3,4,5) & Pre PT Stop: 10/20/22 22:33 Liothyronine 40mcg: Non-Formulary Patient's Own Med 1 each PO BID [facility] Stop: 11/06/22 21:59 Last Admin: 10/09/22 08:01 Dose: 40 mcg PG Care Time/CCT Total # of Minutes Spent Total Time Spent with Patient: Total time spent is greater than 50% in coordination of care (as documented) at patient's floor/unit and/or counseling patient: Coding Level of Care Code 21941 SUB INP/OBS CARE 2/35MIN Diagnoses Atrial fibrillation with RVR I48.91 Acute diverticulitis K57.92
[2022-10-09] MEDS: METOPROLOL TARTRATE 50 MG TAB PO SCH ×2 (09:04→20:17)
[2022-10-09] MEDS: APIXABAN 5 MG TABLET PO SCH ×2 (09:05→20:18)
[2022-10-09] MEDS ORDERED: POTASSIUM CHLORIDE CRTAB 20 MEQ TABCR PO ONE (09:20)
--- NOTE | 2022-10-09 22:03 | Hospitalist Progress Note ---
Date of Service October 09, 2022 Assessment & Plan (1) Atrial fibrillation with RVR: Plan: New onset - suspect related to underlying diverticulitis but probably paroxysmal for years [id number] - 2, recommend anticoagulation: will switch to eliquis TSH WNL TTE continue anticoagulation reviewed labs As HR has not improved, will increase dose of diltiazem to help improve the rate of his atrial fibrillation. This is the limiting factor that is keeping him in the hospital. (2) Acute diverticulitis: Plan: Zosyn tolerating his diet, will transition to augmentin in AM. Patient's diet has been advanced from clears and is now tolerating a low fiber diet (3) Hypothyroid: Plan: Continue liothyronine Plan VTE Prophylaxis - heparin IV Disposition - admit to PCU Admission and Anticipated Discharge Date Admission Date: October 06, 2022 Subjective 77 yo male reports feeling better. He states he has no discomfort in his belly. Review of Systems Review of Systems: All systems reviewed & are unremarkable except as noted in HPI & below Physical Exam Physical Exam: Constitutional: WD/WN, vitals as above Eyes: + anicteric sclerae; normal pupil size ENMT: external ear and nose normal, oropharynx normal Respiratory: normal respiratory effort, lungs clear to auscultation Cardiovascular: Rate/Rhythm: normal rate, irregularly irregular Heart Sounds: no murmur Extremities: normal capillary refill; no calf tenderness and no pedal edema Gastrointestinal (Abdomen): Inspection/Auscultation: abdomen normal to inspection; abdomen not distended soft, nontener Musculoskeletal: no cyanosis or clubbing, extremities motor strength 5/5 Skin: no rashes, warm and dry Neurologic: moves all extremities and awake; not confused Psychiatric: A+Ox3, euthymic affect Genitourinary: no CVA tenderness Results & Data Results & Data Vital Signs (Past 12 Hours) Vital Signs Temp Pulse Pulse Resp BP BP Pulse Ox 10/09/22 19:37 36.4 C L 90 16 103/76 97 10/09/22 15:30 37.0 C 76 18 99/78 L 98 10/09/22 12:24 92 H 10/09/22 12:24 10/09/22 12:04 36.8 C 102 H 19 101/64 99 O2 Del Method 10/09/22 19:37 Room Air 10/09/22 15:30 Room Air 10/09/22 12:24 10/09/22 12:24 Room Air 10/09/22 12:04 Room Air PG Care Time/CCT Total # of Minutes Spent Total Time Spent with Patient: Total time spent is greater than 50% in coordination of care (as documented) at patient's floor/unit and/or counseling patient: Coding Level of Care Code 62762 SUB INP/OBS CARE 3/50MIN Diagnoses Atrial fibrillation with RVR I48.91 Acute diverticulitis K57.92 Hypothyroid E03.9
[2022-10-10] MEDS: PIPERACILLIN/TAZOBACTAM 3.375 GM in DEXTROSE 5% 100 ML IV SCH (04:16)
[2022-10-10 07:25] LABS: Hematocrit (blood only) 40.4 % (42.0-52.0); Hemoglobin 14.3 g/dl (14.0-18.0); Mean Corpuscular Hemoglobin 30.1 pg (25.0-34.0); Mean Corpuscular Hgb Conc 35.4 g/dL (32.0-36.0); Mean Corpuscular Volume 85.1 fL (80.0-100.0); Mean Platelet Volume 9.7 fL (9.4-12.4); Platelet Count 216 K/uL (130-400); RDW Coefficient of Variation 12.9 % (11.5-14.5); RDW Standard Deviation 40.1 fL (36.4-46.3); Red Blood Count 4.75 M/uL (4.70-6.10); White Blood Count 4.51 K/ul (4.8-10.8)
[2022-10-10 07:45] LABS: BUN Creatinine Ratio 8.9 (10-20); C Reactive Protein 0.74 mg/dl (0-0.5); Calcium 8.4 mg/dl (8.6-10.3); Creatinine Clr Calc Pharmacy 51.1 ml/min; Est GFR (African American) 58.7 ml/min; Est GFR (Non-African American) 50.6 ml/min; Magnesium 1.9 mg/dl (1.7-2.4); Phosphorus 3.8 mg/dl (2.5-4.9)
--- NOTE | 2022-10-10 07:54 | Hospitalist Progress Note ---
Date of Service October 10, 2022 Assessment & Plan (1) Atrial fibrillation with RVR: Plan: Acute and unstable suspected due to physiological stress from acute diverticulitis and hypokalemia [id number] - 2, recommend anticoagulation: Transition to eliquis Echocardiogram reveals normal left ventricular size and function, mild biatrial dilation mild valvular insufficiencies Cardiology endorses increasing diltiazem (2) Acute diverticulitis: Plan: Acute moderate risk, continue antibiotics tolerating his diet, will transition to augmentin in AM. Patient's diet has been advanced from clears and is now tolerating a low fiber diet (3) Hypothyroid: Plan: Chronic and stable continue liothyronine Plan VTE Prophylaxis - on Eliquis for anticoagulation for A-fib Admission and Anticipated Discharge Date Admission Date: October 06, 2022 Results & Data Results & Data Vital Signs (Past 12 Hours) Vital Signs Temp Pulse Pulse Resp BP Pulse Ox O2 Del Method 10/10/22 07:00 90 10/10/22 05:00 97.3 F L 100 H 16 114/71 97 Room Air 10/10/22 04:20 91 H 14 10/09/22 22:00 85 10/09/22 23:08 98.6 F 88 20 121/81 98 Room Air Laboratory Results Reviewed CBC Reviewed PRP Reviewed cardiology consultation from 10/09 PG Care Time/CCT Total # of Minutes Spent Total Time Spent with Patient: Total time spent is greater than 50% in coordination of care (as documented) at patient's floor/unit and/or counseling patient: Coding Diagnoses Atrial fibrillation with RVR I48.91 Acute diverticulitis K57.92 Hypothyroid E03.9
[2022-10-10] MEDS ORDERED: AMOXICILLIN/CLAVULANATE 875 MG TAB PO SCH (08:00)
[2022-10-10] MEDS: APIXABAN 5 MG TABLET PO SCH (08:50)
[2022-10-10] MEDS: LIOTHYRONINE PO SCH (08:50)
[2022-10-10] MEDS: METOPROLOL TARTRATE 50 MG TAB PO SCH (08:51)
[2022-10-10] MEDS ORDERED: dilTIAZem HCL 240 MG CAPCR PO SCH (09:00)
--- NOTE | 2022-10-10 09:02 | Cardiology Progress Note ---
Date of Service October 10, 2022 Assessment & Plan (1) Atrial fibrillation with RVR: (2) Acute diverticulitis: Plan ASSESSMENT/PLAN: 1. Atrial fibrillation with rapid ventricular response: Heart rate improved with further titration of diltiazem. Diltiazem CD2 140 mg starting this morning. Continue beta-susan. Continue Eliquis for stroke risk reduction. He is asymptomatic and therefore would continue with rate control strategy for now. After 4 weeks of therapeutic anticoagulation therapy, consideration can be made by his local providers to continue rate control strategy versus DC cardioversion. Recommend cardiology follow-up when he returns to the [place] area. 2. Acute diverticulitis: As per primary hospitalist service. Acute illness may be contributing to his arrhythmia. Having more lower abdominal discomfort this morning, especially as he continued to eat breakfast. 3. Hypokalemia: Normal today. 4. Disposition: Plan of care communicated with primary hospitalist, Dr. Delaney. If heart rate remains similar, can be discharged home from a card iology standpoint. Ongoing gi care as per hospitalist. Recommend close follow- up with his PCP and establishing care with cardiology in his hometown area for anticipated cardioversion after 4 weeks of therapeutic anticoagulation therapy. Trying to avoid transesophageal echo and cardioversion now given ongoing abdominal complaints. Admission and Anticipated Discharge Date Admission Date: October 06, 2022 Subjective Patient seen this morning. He is complaining of more lower abdominal discomfort/"upset." This was present yesterday morning before his medications, occurred again last night, and worsened this morning while eating. He describes this differently than the pain that he presented with. His heart rate was better controlled overnight. He denies palpitations, chest pain, shortness of breath, syncope, lightheadedness, or edema. He denies bleeding. He was alone in his hospital room. Physical Exam Physical Exam: Gen.: No acute distress. Alert and oriented. HEENT: Anicteric sclera. Neck: No JVD. Cardiac: Irregularly irregular. Normal rate. Normal S1-S2. No murmurs, rubs, or gallops. Pulmonary: Clear to auscultation bilaterally without wheezes, rales, or rhonchi. Abdomen: Soft, nondistended, with normoactive bowel sounds. No bruits noted. No definite tenderness. Extremities: 2+ radial pulses bilaterally. 2+ posterior tibialis pulses bilaterally. No edema or cyanosis. Psychiatric: Affect appears appropriate. Results & Data Vital Signs (Past 12 Hours) Vital Signs Temp Pulse Pulse Resp BP Pulse Ox O2 Del Method 10/10/22 08:21 36.4 C L 95 H 18 108/77 97 Room Air 10/10/22 07:00 90 10/10/22 05:00 36.3 C L 100 H 16 114/71 97 Room Air 10/10/22 04:20 91 H 14 10/09/22 22:00 85 10/09/22 23:08 37 C 88 20 121/81 98 Room Air Laboratory Results Laboratory Results - last 24 hr 10/10/22 10/10/22 06:45 06:45 WBC 4.51 L RBC 4.75 Hgb 14.3 Hct 40.4 L MCV 85.1 MCH 30.1 MCHC 35.4 RDW Std Deviation 40.1 RDW Coeff of Kishore 12.9 Plt Count 216 MPV 9.7 Sodium 140 Potassium 4.0 Chloride 110 H Carbon Dioxide 22 Anion Gap 8 BUN 12 Creatinine 1.35 Est Cr Clr Drug Dosing 51.1 Est GFR ( Amer) 58.7 Est GFR (Non-Af Amer) 50.6 BUN/Creatinine Ratio 8.9 L Glucose 103 H Calcium 8.4 L Phosphorus 3.8 Magnesium 1.9 C-Reactive Protein 0.74 H Diagnostic Findings Telemetry personally reviewed: A-fib. Heart rate significantly improved compared to yesterday morning. Heart rate trending upward this morning prior to his morning medications. Labs reviewed: Normal hemoglobin, stable renal function, normal potassium. Medications Administered Current Inpatient Medications Amoxicillin/Clavulanate Potassium (Amoxicillin/Clavulanate 875 Mg Tab) 1 tab PO BIDM [facility] Stop: 10/20/22 07:59 Last Admin: 10/10/22 08:50 Dose: 1 tab Apixaban (Apixaban 5 Mg Tablet) 5 mg PO BID [facility] Stop: 11/07/22 20:59 Last Admin: 10/10/22 08:50 Dose: 5 mg Diltiazem HCl (Diltiazem Hcl 240 Mg Capcr) 240 mg PO QAM [facility] Stop: 11/09/22 08:59 Last Admin: 10/10/22 08:51 Dose: 240 mg Metoprolol Tartrate (Metoprolol Tartrate 1 Mg/Ml Vial) 5 mg IV Q4 PRN PRN Reason: HR persistently > 120 Stop: 11/06/22 00:00 Last Admin: 10/07/22 19:24 Dose: 5 mg Metoprolol Tartrate (Metoprolol Tartrate 50 Mg Tab) 50 mg PO BID [facility] Stop: 11/06/22 08:59 Last Admin: 10/10/22 08:51 Dose: 50 mg Morphine Sulfate (Morphine Sulfate 4 Mg/Ml 1 Ml Carp\\Vial) 4 mg IV Q3H PRN PRN Reason: Pain (6,7,8,9,10) Stop: 10/20/22 22:33 Morphine Sulfate (Morphine Sulfate 2 Mg/Ml Carp) 2 mg IV Q3H PRN PRN Reason: Pain (1,2,3,4,5) & Pre PT Stop: 10/20/22 22:33 Liothyronine 40mcg: Non-Formulary Patient's Own Med 1 each PO BID [facility] Stop: 11/06/22 21:59 Last Admin: 10/10/22 08:50 Dose: 47 mcg PG Care Time/CCT Total # of Minutes Spent Total Time Spent with Patient: Total time spent is greater than 50% in coordination of care (as documented) at patient's floor/unit and/or counseling patient: Coding Level of Care Code 77872 SUB INP/OBS CARE 2/35MIN Diagnoses Atrial fibrillation with RVR I48.91 Acute diverticulitis K57.92
--- NOTE | 2022-10-10 14:59 | Discharge Summary ---
Date of Service October 10, 2022 Admission HPI Per Admitting Provider Juan C Narayan is a 77 year old male who presents to the ER with abdominal pain. He reports a long and tangential history from childhood of gastrointestinal histories and multiple integrative medicine approaches to regulating his bowels following doxycycline given in his youth which he suspects caused his problems. Acutely though he has had new onset abdominal pain since Friday (4 days previously). Pain comes in cramping waves. Unclear if related to food. Lower abdominal without radiation. Associated chills initially and then again last night. Normal stools. No nausea or vomiting. No improvement with Yoselyn-seltzer. Feels generally weak. Colonoscopy 2 years ago - patient recollection - couple of hemorrhoids, no biopsies that he knows of. In the ER he was noticed to have atrial fibrillation with rapid ventricular rate. He reports no known history of this. He does notice palpitations occasionally and has though his HR was irregular in the past but never pursued this as regular check ups have always been normal. He denies any alcohol use. He takes liothyronine for hypothyroidism - no recent changes. Principal Diagnosis atrial fibrillation RVR, now rate controlled on eliquis diverticulitis, improving Discharge Exam Patient was seen prior to being discharged. He was having heart rates in the low 100s but he was asymptomatic and not short of breath His abdominal examination was with NABS soft nontender nondistended Discharge Data Allergies Allergy/AdvReac Type Severity Reaction Status Date / Time Sulfa (Sulfonamide Allergy Rash Verified 10/06/22 15:46 Antibiotics) acetic acid AdvReac Unknown Gastrointestinal Verified 10/08/22 08:47 Upset lactose AdvReac gi up-set Verified 10/06/22 15:55 Consultations 10/06/22 13:05 ED Decision to Admit Stat 10/07/22 12:05 Consult Cardiology Routine Ordered Studies Chest X-Ray 10/06/22 10:34 XR chest 1V portable CLINICAL HISTORY: Weakness COMPARISON STUDY: No previous studies for comparison. FINDINGS: Lung volumes are within normal limits. There is no pneumothorax or pleural effusion. Mild cardiomegaly is noted. Lower lung interstitial thickening and mild opacities are present. IMPRESSION: 1. Lower lung interstitial thickening and mild airspace opacities. The findings could reflect atelectasis or an infectious process. Radiographic follow-up is recommended. 2. Cardiomegaly without radiographic evidence for pulmonary edema. ACT 112: Negative or not required by law. Electronically signed by: Sanchez Raymundo M.D. 10/06/2022 11:23 AM Abdomen/Pelvis CT 10/06/22 11:31 CT OF THE ABDOMEN AND PELVIS WITH CONTRAST CLINICAL HISTORY: new onset afib, GI bloating and diffuse pain COMPARISON STUDY: None. TECHNIQUE: Following IV administration of 112 mL of Optiray, axial images of the abdomen and pelvis were obtained from the lung bases to the proximal femurs. Images were reviewed in the axial, sagittal, and coronal planes. IV contrast was administered without complication. Automated exposure control was utilized for the study. A dose lowering technique was utilized adhering to the principles of ALARA. CT DOSE: 1030.45 mGy.cm FINDINGS: A few small subpleural left lower lobe nodules measure up to 6 mm. These were not well visualized on the chest CT due to respiratory motion on that exam. No pneumatosis, free air or portal venous gas is present. The liver, spleen, adrenal glands, kidneys and pancreas are unremarkable with the exception of a suspected subcentimeter left renal cyst. There is no biliary or pancreatic ductal dilatation. Gallstones within the gallbladder are present. No evidence for acute cholecystitis. There is no lymphadenopathy. Sigmoid diverticulosis is noted. There is an inflamed diverticulum of the proximal sigmoid colon. There is mild inflammation. No free air or abscess is present. There is mild associated colonic wall thickening. Small fat-containing umbilical hernia is present. Major vasculature is patent. There are no suspicious osseous lesions. IMPRESSION: 1. Acute sigmoid diverticulitis. Mild inflammation. No free air or abscess. 2. A few small subpleural left lower lobe pulmonary nodules. These are probably benign. A follow-up chest CT in 6 months to ensure stability is recommended. 3. Cholelithiasis. No evidence for acute cholecystitis. ACT 112: Negative or not required by law. Electronically signed by: Sanchez Raymundo M.D. 10/06/2022 12:31 PM Chest CTA 10/06/22 11:31 CT ANGIOGRAPHY OF THE CHEST, PULMONARY EMBOLUS PROTOCOL CLINICAL HISTORY: new onset afib, + dimer COMPARISON STUDY: Chest radiograph performed earlier today. TECHNIQUE: Following IV administration of 112 mL of Optiray, helical axial images of the chest were obtained utilizing the pulmonary embolus protocol. Maximal intensity projections and sagittal and coronal reformats were viewed on an independent 3D workstation. IV contrast was administered without complication. Automated exposure control was utilized for the study. A dose lowering technique was utilized adhering to the principles of ALARA. FINDINGS: No pulmonary emboli are identified although the lower lobe segmental and subsegmental pulmonary arteries are suboptimally assessed due to respiratory motion. There is mild cardiomegaly. No pericardial effusion. No thoracic lymphadenopathy. There is no pneumothorax or pleural effusion. Lungs are suboptimally assessed due to respiratory motion. No consolidation is identified. The central airways are grossly patent. There is no pneumothorax or pleural effusion. There are gallstones within the gallbladder. The abdomen and pelvis CT will be reported separately. IMPRESSION: 1. No pulmonary emboli identified although segmental and subsegmental lower lobe pulmonary arteries suboptimally assessed due to respiratory motion. 2. Mild cardiomegaly. 3. No consolidation. ACT 112: Negative or not required by law. Electronically signed by: Sanchez Raymundo M.D. 10/06/2022 12:16 PM Hospital Course (1) Atrial fibrillation with RVR: Acute and now stable suspected due to physiological stress from acute diverticulitis and hypokalemia [id number] - 2, recommend anticoagulation: Transition to eliquis Echocardiogram reveals normal left ventricular size and function, mild biatrial dilation mild valvular insufficiencies Cardiology endorses discharged on diltiazem and metoprolol (2) Acute diverticulitis: Acute moderate risk, continue antibiotics tolerating his diet, will transition to augmentin as outpt Patient's has been tolerating a low fiber diet (3) Hypothyroid: Chronic and stable continue liothyronine Plan Eliquis for anticoagulation for A-fib Total Time Total Time Spent Total Time Spent (In Minutes): It required greater than 30 minutes to prepare this patient for discharge Discharge Plan Discharge Items Patient Disposition: Home - Self-Care Reason For Visit: ACUTE DIVERTICULITIS, A. FIB RVR Discharge Diagnosis: Diverticulitis continue outpatient antibiotics Atrial fibrillation (irregular heartbeat) increasing dose of diltiazem and anticoagulation with Eliquis Condition on Discharge: Good Activity: Per Instructions section Activity Comment: Slowly increase her activity Non-emergency contact: Primary Care Provider Call non-emergency contact if: your symptoms worsen Follow-up/Referrals: Karel Camp MD [Primary Care Provider] - (Dr Camp office will call you either today or tomorrow to schedule your follow up) Diet: Regular Addtl Attending Provider Instructions: Continue a low fiber diet for the next week while taking your antibiotics. Consider using a probiotic such as yogurt or cottage cheese or [id number] probiotic to help your GI tract bacterial balance while taking antibiotics. Please see your family doctor to coordinate follow-ups with cardiology and gastroenterology. Pending Studies at Discharge: No Stand-Alone Forms: [facility], Smoking Cessation Medications and DC Order Prescriptions: New Eliquis 5 mg Tablet 5 mg PO BID Qty: 60 4RF diltiazem HCl 240 mg Capsule,Extended Release 24hr 240 mg PO QAM Qty: 30 3RF metoprolol tartrate 50 mg Tablet 50 mg PO BID Qty: 60 3RF amoxicillin-pot clavulanate 875-125 mg Tablet 1 tab PO BIDM Qty: 14 0RF Continued digestive enzymes Tablet 1 tab PO BIDM Rx Instructions: Takes with breakfast & dinner calcium carbonate 500 mg calcium (1,250 mg) Tablet 500 mg PO DAILY ascorbic acid (vitamin C) [Vitamin C] 500 mg Tablet 1,000 mg PO BID vitamin B complex Tablet 1.5 tab PO DAILY magnesium glycinate 100 mg Tablet 0 mg PO DAILY cholecalciferol (vitamin D3) [Vitamin D3] 125 mcg (5,000 unit) Tablet 250 mcg PO 3XWK Rx Instructions: Take on mowefr cholecalciferol (vitamin D3) [Vitamin D3] 125 mcg (5,000 unit) Tablet 125 mcg PO 4XD Rx Instructions: Take on tuthsasu Liothyronine 40 Mcg Tab 40 mcg PO AMPM Discharge Orders: Discharge Order (Routine); Ordered 10/10/22 Ordered By: Mejia Da Silva/Other Patient Handouts: Diverticulosis and Diverticulitis, Diverticulitis Dc Admission Data Admit Date/Time: 10/06/22 12:57 Attending Provider: Mejia Delaney Admit Provider: Abdullahi Villarreal Primary Care Provider: Karel Camp Other Providers: Abdullahi Villarreal ; Zackary Thorne Other Interventions: Discharge Summary Assessment (RN) Last Done: 10/10/22 13:00 Coding Level of Care Code 19944 INP/OBS DISCH >30 MIN Diagnoses Atrial fibrillation with RVR I48.91 Acute diverticulitis K57.92 Hypothyroid E03.9
== END 2022-10-10 13:47 | disposition home or self-care (01) | DRG 392 ==
LOC: ED 09:19 → SUATTDRO 12:57 → 2E 12:57